=== PATIENT | female | born 1995 | race Caucasian/White ===

== ENCOUNTER → 2025-03-03 13:05 | Observation (INO) ==
[2025-03-01 12:16] LABS: IMMATURE GRANULOCYTE # (AUTO) 0.0 (0.0-1.0); IMMATURE GRANULOCYTE % (AUTO) 0.3 % (0.0-5.0); RDW COEFFICIENT OF VARIATION 13.1 % (11.6-14.8)
[2025-03-01 12:34] LABS: CREATININE 0.7 mg/dL (0.60-1.30)
[2025-03-01 12:38] LABS: SERUM PREGNANCY NEGATIVE (NEGATIVE)
--- NOTE | 2025-03-01 13:21 | PCM ---
Date of Service Date Seen by Provider: 03/01/25 Time Seen by Provider: 12:15 Admit Day/Time Admission Date: 03/01/25 Admission Time: 11:51 Reason for Admission Chief Complaint: CELLULITIS Hospital Provider Hospital Provider: CLARIBEL CRAWFORD PA-C, [facility] [place] Primary Care Physician Primary Care Physician: MAKAYLA SUTTON PA-C History of Present Illness History of Present Illness: Patient is a 29-year-old female with no significant past medical history but is currently breast-feeding who presents as a direct admit from Makayla White's office for failed outpatient antibiotics with cellulitis. Patient states that on 02/23 she was bit by a spider, spider was visualized. By 02/25 she was having fatigue, fever, body aches and worsening erythema of her lower left abdomen. She presented on to see PCP and was prescribed Bactrim for cellulitis. Today she presented for checkup and it has worsened outside of the lines drawn. She has pain in that area as well. She does not feel like she is ran a fever the last couple days. But she just overall does not feel very well. Patient admitted to [facility] for IV antibiotics. Labs drawn which are overall unremarkable. Vitals are stable. However patient's cellulitis has continued to worsen despite oral antibiotics. We discussed a plan regarding her breast-feeding. Unfortunately many antibiotics we can give IV have risk of being in the breastmilk and/or could affect the child in some way, such as diarrhea, thrush, etc. Some antibiotics there is limited data. There are some options that are in general low risk and acceptable to use. After shared decision making, she is agreeable to pumping and dumping at this time while on antibiotics to avoid any risk. Case Discussed With Case Discussed With: Patient's case was discussed with PCP Makayla MAGANA Medical History Cancer C80.1 - Malignant (primary) neoplasm, unspecified (ICD-10) Gestational diabetes mellitus O24.419 - Gestational diabetes mellitus in , unspecified control (ICD-10) Surgical History H/O: x2 Z98.891 - History of uterine scar from previous surgery (ICD-10) Family History Mother Diabetes MATERNAL GRANDFATHER Diabetes CHF (congestive heart failure) BROTHER Diabetes MATERNAL GRANDMOTHER Lung cancer Cancer Social History Smoking and tobacco status: Former smoker Passive smoking exposure: No Second hand smoke exposure: No Smoking risk assessment performed: No Alcohol intake: current Alcohol intake frequency: holidays/special occasions only Counseling given: No Counseling provided: none Substance use type: does not use Counseling given: No Counseling provided: none Allergies Allergies Allergy/AdvReac Type Severity Reaction Status Date / Time No Known Allergies Allergy Verified 03/01/25 10:55 Current Medications Home Medications Acetaminophen (Acetaminophen 325 Mg Tablet) 650 mg PO Q4H PRN PRN Reason: Mild Pain Lactated Ringer's (Lactated Ringers) 1,000 mls @ 100 mls/hr IV .Q10H [facility] Last Admin: 03/01/25 16:02 Dose: 100 mls/hr Ampicillin Sodium/Sulbactam (Sodium 3 gm/ Sodium Chloride) 100 mls @ 200 mls/hr IV Q6HR SOMMER Stop: 03/04/25 17:59 Last Admin: 03/01/25 17:58 Dose: 200 mls/hr Ibuprofen (Ibuprofen 600 Mg Tablet) 600 mg PO Q6H PRN PRN Reason: MODERATE PAIN Saccharomyces Boulardii (Saccharomyces Boulardii 250 Mg Capsule) 250 mg PO BID [facility] Last Admin: 03/01/25 20:05 Dose: 250 mg ibuprofen 600 mg tablet 600 mg PO Q6H PRN Analgesia #30 tabs 05/20/22 [Rx Confirmed 03/01/25] prednisone 10 mg tablet 10 mg PO QDAY 5 days #5 tabs 02/27/25 [Rx Confirmed 03/01/25] sulfamethoxazole 800 mg-trimethoprim 160 mg tablet (Bactrim DS) 2 tab PO BID 10 days #40 tabs 02/27/25 [Rx Confirmed 03/01/25] Opioid Naive vs. Tolerant Does Patient Take Opioids?: No Is Patient Opioid Naive?: Yes What is Opioid Naive?: *Opioid Naive implies the patient is not already taking opioids or not chronically receiving opioids on a daily basis. *PRN dosing is not "usually" associated with tolerance. *Patients are at higher risk of over-sedation and aspiration. Is Patient Opioid Tolerant?: No What is Opioid Tolerant?: *Opioid Tolerance implies less than the expected response to an opioid. *Acquired tolerance is defined by the patient taking 60mg of oral morphine daily (or equianalgesic dose of another opioid) for 1 week or more. *Often associated with chronic pain. *May take more than usual dose to achieve desired pain control. Review of Systems Constitutional: Reports Fever and Fatigue; Denies Weakness Head: Reports Normocephalic and Atraumatic Cardiovascular: Denies Chest pain or Chest Pressure Respiratory: Denies Cough or Shortness of air Gastrointestinal: Denies Nausea, Vomiting, Diarrhea or Melena Genitourinary: Denies Dysuria or Frequency Dermatologic: Reports Rashes and Skin Changes Neurological: Denies Headache, Dizziness or Syncope Physical examination Most Recent Vital Signs: Most Recent Vital Signs Temperature 97.7 F 03/01/25 12:16 Temperature Source Temporal Artery Scan 03/01/25 12:16 Pulse Rate 76 03/01/25 12:16 Respiratory Rate 17 03/01/25 12:16 Blood Pressure 123/84 03/01/25 12:16 Blood Pressure Mean 97 03/01/25 12:16 Blood Pressure Location Right Arm 03/01/25 12:16 Blood Pressure Position Sitting 03/01/25 12:16 O2 Sat by Pulse Oximetry 96 03/01/25 12:16 Oxygen Delivery Method Room Air 03/01/25 12:16 Appearance: Positive Well-appearing, Well-nourished, No Apparent Distress and Alert and Oriented x3 Skin: Positive Oden, Warm and Good Turgor HEENT: Positive Normocephalic and Atraumatic Neck: Positive Supple and Midline Trachea Chest/Lungs: Positive Clear to Auscultation Bilaterally; Negative Rales, Rhonci or Wheezes Heart: Positive RRR GI/: Positive Soft, Nontender and No Distention Extremities: Negative Edema Neurological: Positive Cranial Nerves Intact, Alert, Oriented and Muscle Strength 5/5 in Upper and Lower Extremities Bilaterally Psychiatric: Positive Oriented x4, Appropriate Mood, Appropriate Affect and Intact Memory Additional Findings: LLQ - large area of erythema noted with central mild necrosis, no ulceration, no drainage, no induration or signs of abscess superficially. Pain with palpation. Labs This Visit Labs This Visit: Labs This Visit 03/01/25 12:05 WBC 7.52 RBC 4.87 Hgb 13.3 Hct 41.7 MCV 85.6 MCH 27.3 MCHC 31.9 RDW Coeff of Juliane 13.1 Plt Count 296 Immature Gran % (Auto) 0.3 Neut % (Auto) 64.9 Lymph % (Auto) 25.0 [place] % (Auto) 5.3 Eos % (Auto) 3.7 Baso % (Auto) 0.8 Neut # (Auto) 4.9 Lymph # (Auto) 1.9 [place] # (Auto) 0.4 Eos # (Auto) 0.3 Baso # (Auto) 0.1 Immature Gran # (Auto) 0.0 Sodium 140.5 Potassium 4.34 Chloride 102.7 Carbon Dioxide 24.2 Anion Gap 17.94 BUN 10.6 Creatinine 0.70 Estimated GFR (MDRD) 100.00 BUN/Creatinine Ratio 15.14 Glucose 103.5 Lactic Acid 1.32 Calcium 8.76 Total Bilirubin 0.70 AST 32.7 ALT 40.8 H Alkaline Phosphatase 144.2 H Total Protein 8.65 H Albumin 4.68 Globulin 3.97 Albumin/Globulin Ratio 1.17 Procalcitonin < 0.05 Serum , Qual Negative Review Statement Review Statement: I have independently reviewed and interpreted the labs/EKGs/imaging that were ordered by the ER provider. I have reviewed all outside records that are available currently in our EMR including imaging/notes/labs from previous visits. Plan Plan: 1. Cellulitis of left lower abd likely due to spider bite, failed outpatient antibiotics - Failed outpatient bactrim. Discussed again risks with . She will pump and dump. Labs overall unremarkable. Tylenol prn for pain. Low risk of mrsa. Will trial unasyn, and if shows improvement will transition to augmentin upon discharge. 2. - Will be mindful of medications when able, she plans to pump and dump at this time DVT Prophylaxis: Ambulation Time Spent: Greater than 80 minutes spent with patient, 50% of the time spent with this patient was devoted to counseling and coordination of care. [facility] minutes spent discussing advance care planning. Admit to: Obs Discussed Plan of Care with Dr. Amaya Randolph. Medications Medication Orders: Medications Ordered Category Date Time Status Acetaminophen [Tylenol] Meds 03/01/25 11:51 Active 650 mg PO Q4H PRN Clindamycin Phosphate/D5w [Cleocin 600 mg/50 ml D5w] Meds 03/01/25 13:00 Active 600 mg in 50 ml IV Q8HR Ringers Lactated Solution [Lactated Ringers] 1,000 ml Meds 03/01/25 12:30 Active IV 100 mls/hr
[2025-03-01] MEDS: CLEOCIN 600 MG/50 ML D5W 600 MG/50 ML BAG IV SCH (14:06)
[2025-03-01 14:16] VITALS: BMI 33.0
[2025-03-01] MEDS: LACTATED RINGERS 1,000 ML IV SCH (16:02)
[2025-03-01] MEDS: UNASYN 3 GM in SODIUM CHLORIDE 100ML 100 ML IV SCH (17:58)
[2025-03-01] MEDS: FLORASTOR PO SCH (20:05)
[2025-03-02 05:04] LABS: IMMATURE GRANULOCYTE # (AUTO) 0.0 (0.0-1.0); IMMATURE GRANULOCYTE % (AUTO) 0.1 % (0.0-5.0); RDW COEFFICIENT OF VARIATION 13.1 % (11.6-14.8)
[2025-03-02 05:19] LABS: CREATININE 0.57 mg/dL (0.60-1.30)
--- NOTE | 2025-03-02 10:21 | PCM.PROG ---
Date/Time Seen Date Seen by Provider: 03/02/25 Time Seen by Provider: 09:00 Provider [facility] Chief Complaint Chief Complaint: CELLULITIS Subjective Subjective: Patient has no specific complaints. Daughter did not do well without breast feeding last night. Today her cellulitis looks improved. Objective Appearance: Positive No Apparent Distress and Alert and Oriented x3 Chest/Lungs: Positive Clear to Auscultation Bilaterally; Negative Rales, Rhonci or Wheezes Heart: Positive RRR GI/: Positive Soft, Nontender, Bowel Sounds Normal and No Distention Neurological: Positive Cranial Nerves Intact, Alert, Oriented and Muscle Strength 5/5 in Upper and Lower Extremities Bilaterally Additional Findings: LLQ- erythema has spread across line drawn medially, however has receded elsewhere, looks significantly less "angry" today. Central necrosis noted. No significant ulceration, induration, drainage, etc. Vital Signs Vital Signs: Vital Signs: Last 24 Hours 03/01/25 12:16 03/01/25 13:55 03/01/25 13:55 Temperature 97.7 F 97.7 F Temperature Source Temporal Artery Scan Tympanic Pulse Rate 76 78 Respiratory Rate 17 17 17 Blood Pressure 123/84 Blood Pressure Mean 97 Blood Pressure Left Arm 123/82 Blood Pressure Location Right Arm Blood Pressure Position Sitting Sitting O2 Sat by Pulse Oximetry 96 96 Oxygen Delivery Method Room Air Room Air Room Air Height 5 ft 7 in Weight 95.708 kg 03/01/25 14:00 03/01/25 14:00 03/01/25 15:00 Temperature Temperature Source Pulse Rate Respiratory Rate Blood Pressure Blood Pressure Mean Blood Pressure Left Arm Blood Pressure Location Blood Pressure Position O2 Sat by Pulse Oximetry Oxygen Delivery Method Room Air Room Air Room Air Height Weight 03/01/25 15:51 03/01/25 16:45 03/01/25 17:28 Temperature Temperature Source Pulse Rate Respiratory Rate Blood Pressure Blood Pressure Mean Blood Pressure Left Arm Blood Pressure Location Blood Pressure Position O2 Sat by Pulse Oximetry Oxygen Delivery Method Room Air Room Air Room Air Height Weight 03/01/25 18:00 03/01/25 19:00 03/01/25 20:00 Temperature 97.3 F L Temperature Source Temporal Artery Scan Pulse Rate 80 Respiratory Rate 14 Blood Pressure 118/75 Blood Pressure Mean 89 Blood Pressure Left Arm Blood Pressure Location Left Arm Blood Pressure Position Sitting O2 Sat by Pulse Oximetry 98 Oxygen Delivery Method Room Air Room Air Room Air Height Weight 03/01/25 20:00 03/01/25 20:14 03/01/25 21:00 Temperature 97.5 F L Temperature Source Temporal Artery Scan Pulse Rate 63 Respiratory Rate 20 Blood Pressure 117/84 Blood Pressure Mean 95 Blood Pressure Left Arm Blood Pressure Location Left Arm Blood Pressure Position Sitting O2 Sat by Pulse Oximetry 97 Oxygen Delivery Method Room Air Room Air Room Air Height Weight 03/01/25 22:00 03/01/25 23:00 03/01/25 23:59 Temperature Temperature Source Pulse Rate Respiratory Rate Blood Pressure Blood Pressure Mean Blood Pressure Left Arm Blood Pressure Location Blood Pressure Position O2 Sat by Pulse Oximetry Oxygen Delivery Method Room Air Room Air Room Air Height Weight 03/02/25 01:00 03/02/25 01:56 03/02/25 01:57 Temperature 97.5 F L Temperature Source Temporal Artery Scan Pulse Rate 79 Respiratory Rate 20 Blood Pressure 107/59 L Blood Pressure Mean 75 Blood Pressure Left Arm Blood Pressure Location Left Arm Blood Pressure Position Sitting O2 Sat by Pulse Oximetry 97 Oxygen Delivery Method Room Air Room Air Room Air Height Weight 03/02/25 03:00 03/02/25 04:00 03/02/25 05:00 Temperature Temperature Source Pulse Rate Respiratory Rate Blood Pressure Blood Pressure Mean Blood Pressure Left Arm Blood Pressure Location Blood Pressure Position O2 Sat by Pulse Oximetry Oxygen Delivery Method Room Air Room Air Room Air Height Weight 03/02/25 05:12 03/02/25 06:00 03/02/25 07:00 Temperature 97.8 F Temperature Source Temporal Artery Scan Pulse Rate 48 L Respiratory Rate 18 Blood Pressure 110/74 Blood Pressure Mean 86 Blood Pressure Left Arm Blood Pressure Location Left Arm Blood Pressure Position Sitting O2 Sat by Pulse Oximetry 94 L Oxygen Delivery Method Room Air Room Air Room Air Height Weight 03/02/25 08:00 03/02/25 08:00 Temperature Temperature Source Pulse Rate Respiratory Rate Blood Pressure Blood Pressure Mean Blood Pressure Left Arm Blood Pressure Location Blood Pressure Position O2 Sat by Pulse Oximetry Oxygen Delivery Method Room Air Room Air Height Weight Lab Results Lab Results: Lab Results: Last 24 Hours 03/02/25 03/01/25 04:51 12:05 WBC 7.78 7.52 RBC 4.28 4.87 Hgb 11.6 L 13.3 Hct 36.6 L 41.7 MCV 85.5 85.6 MCH 27.1 27.3 MCHC 31.7 L 31.9 RDW Coeff of Juliane 13.1 13.1 Plt Count 280 296 Immature Gran % (Auto) 0.1 0.3 Neut % (Auto) 44.1 64.9 Lymph % (Auto) 43.1 25.0 [place] % (Auto) 8.2 5.3 Eos % (Auto) 3.5 3.7 Baso % (Auto) 1.0 0.8 Neut # (Auto) 3.4 4.9 Lymph # (Auto) 3.4 1.9 [place] # (Auto) 0.6 0.4 Eos # (Auto) 0.3 0.3 Baso # (Auto) 0.1 0.1 Immature Gran # (Auto) 0.0 0.0 Sodium 138.2 140.5 Potassium 3.96 4.34 Chloride 105.9 102.7 Carbon Dioxide 24.8 24.2 Anion Gap 11.46 17.94 BUN 10.8 10.6 Creatinine 0.57 L 0.70 Estimated GFR (MDRD) 126.00 100.00 BUN/Creatinine Ratio 18.94 15.14 Glucose 96.9 103.5 Lactic Acid 1.32 Calcium 8.42 8.76 Total Bilirubin 0.52 0.70 AST 26.8 32.7 ALT 29.9 40.8 H Alkaline Phosphatase 128.6 H 144.2 H Total Protein 6.47 8.65 H Albumin 3.40 L 4.68 Globulin 3.07 3.97 Albumin/Globulin Ratio 1.10 1.17 Procalcitonin < 0.05 Serum , Qual Negative Additional Comments Additional Comments: I have independently reviewed and interpreted the labs/EKGs/imaging ordered during this hospital stay. I have reviewed outside records that are available in our EMR that pertain to medical stay including imaging/notes/labs from previous visits. Active Medications Active Medications: Medications Generic Name Dose Route Start Last Admin Trade Name Freq PRN Reason Stop Dose Admin Acetaminophen 650 mg 03/01/25 11:51 Acetaminophen 325 Mg Tablet PO Q4H PRN Mild Pain Ampicillin Sodium/Sulbactam 100 mls @ 200 mls/hr 03/01/25 18:00 03/02/25 05:34 Sodium 3 gm/ Sodium Chloride IV 03/04/25 17:59 200 mls/hr Q6HR SOMMER Administration Ibuprofen 600 mg 03/01/25 15:09 Ibuprofen 600 Mg Tablet PO Q6H PRN MODERATE PAIN Saccharomyces Boulardii 250 mg 03/01/25 21:00 03/02/25 08:24 Saccharomyces Boulardii 250 Mg Capsule PO 250 mg BID SOMMER Administration Plan Plan: 1. Cellulitis of left lower abd likely due to spider bite, failed outpatient antibiotics - Failed outpatient bactrim. 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 Does not need debridement at this time. Hgb dropped slightly but did receive fluids last night, bili normal, unlikely hemolytic anemia at this point, will continue to monitor. Patient has improved with unasyn, will continue with plan to transition to augmentin tomorrow if still improved. Discussed risks of . Discussed [employer] recommendations with unasyn and augmentin, which both are safe for , just monitor for signs of GI upset in infant including diarrhea. She is aware of this risk. Will resume today. 2. - Will be mindful of medications when able. Dispo: Will require another 24 hours of antibiotics, consider dc tomorrow if continuing to improve Review Statement Review Statement: I have personally discussed and reviewed the patient's visit/currently l abs/imaging/decision making with Dr. Randolph, my supervising attending. Greater that 50 minutes spent with patient, 50% of the time spent with this patient was devoted to counseling and coordination of care.
[2025-03-02] MEDS: MOTRIN PO PRN (10:30)
[2025-03-02] MEDS: TYLENOL PO PRN (14:40)
[2025-03-03 05:10] VITALS: BP 113/68; PULSE 53; RESP 20; TEMP 97.9
[2025-03-03 05:21] LABS: IMMATURE GRANULOCYTE # (AUTO) 0.0 (0.0-1.0); IMMATURE GRANULOCYTE % (AUTO) 0.3 % (0.0-5.0); RDW COEFFICIENT OF VARIATION 12.7 % (11.6-14.8)
[2025-03-03 05:34] LABS: CREATININE 0.46 mg/dL (0.60-1.30)
--- NOTE | 2025-03-03 09:17 | DCSUM ---
Admission Date Admission Date: 03/01/25 Discharge Date Discharge Date: 03/03/25 Admission Diagnosis Admission Diagnosis: 1. Cellulitis of left lower abd, failed outpatient antibiotics Discharge Diagnosis Discharge Diagnosis: 1. Cellulitis of left lower abd, failed outpatient antibiotics, improved 2. mother Hospital Provider Hospital Provider: CLARIBEL CRAWFORD PA-C, [facility] [place] Primary Care Physician Primary Care Physician: MAKAYLA SUTTON PA-C Summary of History and Physical Summary of History and Physical: Patient is a 29-year-old female with no significant past medical history but is currently breast-feeding who presents as a direct admit from Makayla White's office for failed outpatient antibiotics with cellulitis. Patient states that on 02/23 she was bit by a spider, spider was visualized. By 02/25 she was having fatigue, fever, body aches and worsening erythema of her lower left abdomen. She presented on to see PCP and was prescribed Bactrim for cellulitis. Today she presented for checkup and it has worsened outside of the lines drawn. She has pain in that area as well. She does not feel like she is ran a fever the last couple days. But she just overall does not feel very well. Patient admitted to [facility] for IV antibiotics. Labs drawn which are overall unremarkable. Vitals are stable. However patient's cellulitis has continued to worsen despite oral antibiotics. We discussed a plan regarding her breast-feeding. Unfortunately many antibiotics we can give IV have risk of being in the breastmilk and/or could affect the child in some way, such as diarrhea, thrush, etc. Some antibiotics there is limited data. There are some options that are in general low risk and acceptable to use. After shared decision making, she is agreeable to pumping and dumping at this time while on antibiotics to avoid any risk. Hospital Course Subjective: 03/02 : Failed outpatient bactrim. 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 Does not need debridement at this time. Hgb dropped slightly but did receive fluids last night, bili normal, unlikely hemolytic anemia at this point, will continue to monitor. Patient has improved with unasyn, will continue with plan to transition to augmentin tomorrow if still improved. Discussed risks of . Discussed [employer] recommendations with unasyn and augmentin, which both are safe for , just monitor for signs of GI upset in including diarrhea. She is aware of this risk. Will resume today. 03/03: hgb improved. bili still normal. No sign of hemolytic anemia. Patient has been fever free. Procal and lactic neg upon admission. WBC count normal. Erythema much improved on unasyn. Will transition to augmentin PO. MRSA swab negative. Again noted to monitor baby for GI symptoms and/or thrush, but unlikely. Call pcp tomorrow for apt later this week for recheck. Patient does have central area of necrosis, small. It has not ulcerated at this point, advised worst case may need referral to outpatient wound care if it does open up as this resolves, but at this point no indication for debridement. She will discuss with pcp at recheck. Augmentin x5 more days. Tylenol or motrin prn for pain. Appearance: Pleasant, No Apparent Distress and Alert HEENT: MMM CVS: Other (RRR) Abdomen: Soft, Non-Tender and No Distention Respiratory: No Accessory Muscle Use Extremities: No Edema Additional Findings: LLQ - area of cellulitis, much improved, with central necrosis noted. No drainage, ulceration, induration. No sign of abscess. Nursing to place digital picture in progress note prior to dc today. Vital Signs: Most Recent Vital Signs Temperature 97.9 F 03/03/25 05:04 Temperature Source Temporal Artery Scan 03/03/25 05:04 Pulse Rate 53 L 03/03/25 05:04 Respiratory Rate 20 03/03/25 05:04 Blood Pressure 113/68 03/03/25 05:04 Blood Pressure Mean 83 03/03/25 05:04 Blood Pressure Left Arm 123/82 03/01/25 13:55 Blood Pressure Location Left Arm 03/03/25 05:04 Blood Pressure Position Supine 03/03/25 05:04 O2 Sat by Pulse Oximetry 100 03/03/25 05:04 Oxygen Delivery Method Room Air 03/03/25 09:00 Height 5 ft 7 in 03/01/25 13:55 Weight 95.708 kg 03/01/25 13:55 Lab Results Last 24 Hours: 03/03/25 05:15 WBC 6.74 RBC 4.34 Hgb 11.9 L Hct 37.3 MCV 85.9 MCH 27.4 MCHC 31.9 RDW Coeff of Juliane 12.7 Plt Count 262 Immature Gran % (Auto) 0.3 Neut % (Auto) 41.8 L Lymph % (Auto) 42.9 [place] % (Auto) 7.1 Eos % (Auto) 6.4 Baso % (Auto) 1.5 Neut # (Auto) 2.8 Lymph # (Auto) 2.9 [place] # (Auto) 0.5 Eos # (Auto) 0.4 Baso # (Auto) 0.1 Immature Gran # (Auto) 0.0 Sodium 137.6 Potassium 4.15 Chloride 103.8 Carbon Dioxide 25.7 Anion Gap 12.25 BUN 11.8 Creatinine 0.46 L Estimated GFR (MDRD) 162.00 BUN/Creatinine Ratio 25.65 Glucose 110.1 H Calcium 8.54 Total Bilirubin 0.50 AST 27.9 ALT 27.5 Alkaline Phosphatase 111.3 Total Protein 6.57 Albumin 3.46 L Globulin 3.11 Albumin/Globulin Ratio 1.11 Discharge Instructions Discharge Planning: Discharge Planning > [address] Amaya Randolph. Discharge Medications: Medications at Discharge (Home Meds & RX) ibuprofen 600 mg tablet 600 mg PO Q6H PRN Analgesia #30 tabs 05/20/22 Saccharomyces boulardii 250 mg capsule (Florastor) 250 mg PO BID #30 caps 03/03/25 amoxicillin 875 mg-potassium clavulanate 125 mg tablet 1 tab PO BID 5 days #10 tabs 03/03/25 Discharge Plan Discharge Discharge Orders: Discharge Patient (ONCE); Ordered 03/03/25 Ordered By: CLARIBEL CRAWFORD Activity Restrictions/Additional Instructions: DISCHARGE TO HOME DX: CELLULITIS, FAILED OUTPATIENT ANTIBIOTICS STOP BACTRIM PHARMACY: [facility] START AUGMENTIN (ANTIBIOTIC) AND FLORASTOR (PROBIOTIC) CONTINUE , MONITOR FOR GI SYMPTOMS SUCH DIARRHEA F/U WITH PCP, CALL OFFICE TOMORROW MORNING FOR RECHECK LATER THIS COMING WEEK (OR SOONER IF NEEDED OF COURSE) Patient Disposition: HOME SELF-CARE Prescriptions: New Saccharomyces boulardii [Florastor] 250 mg Capsule 250 mg PO BID Qty: 30 0RF amoxicillin-pot clavulanate 875-125 mg tablet 1 tab PO BID 5 Days Qty: 10 0RF Rx Instructions: START 03/04/25 Continued ibuprofen 600 mg tablet 600 mg PO Q6H PRN (Reason: Analgesia) Qty: 30 0RF Discontinued prednisone 10 mg tablet 10 mg PO QDAY 5 Days Qty: 5 0RF sulfamethoxazole-trimethoprim [Bactrim DS] 800-160 mg tablet 2 tab PO BID 10 Days Qty: 40 0RF Did you review [place] [employer]ER for ALL controlled substances?: Not Applicable Discussed opioids are addictive and Narcan is available by prescription or from pharmacy.: No Condition: Stable
[2025-03-03] MEDS: UNASYN ONE (13:04)
== END | disposition home or self-care (01) ==
LOC: MEDSURG B
PROVIDERS: ADMIT Hospitalist; ATTEND Physician Assistant